=== PATIENT | female | born 1945 | race Caucasian/White ===

== ENCOUNTER 2016-05-01 10:06 | Emergency (ER) | payer MEDICARE, BC ==
[2016-05-01 11:09] VITALS: BP 123/53
--- NOTE | 2016-05-01 11:53 | UC ---
HPI Wound/Suture Re-check - HPI Summary HPI Summary: 71 year old female here for wound check of left 5th finger. She cut her finger while cutting an onion on 04/29/2016. She had a dressing with surgicell placed and was instructed to come for wound check and dressing change today. She denies pain. The bleeding has been controlled since the dressing was placed. She has good sensation throughout her left 5th finger. Denies fever or chills or increased pain or swelling - History Of Current Complaint Chief Complaint: UCLaceration Stated Complaint: RE CHECK FINGER LAC Time Seen by Provider: 05/01/16 11:42 Hx Obtained From: Patient Onset/Duration: Sudden Onset, Lasting Days - 2, Still Present - dressing has been intact Severity: Mild - Allergies/Home Medications Allergies/Adverse Reactions: Allergies Allergy/AdvReac Type Severity Reaction Status Date / Time Aspirin Allergy See Comment Verified 05/01/16 10:59 Codeine Allergy See Comment Verified 05/01/16 10:59 Meperidine [From Demerol HCl] Allergy See Comment Verified 05/01/16 10:59 PMH/Surg Hx/FS Hx/Imm Hx Previously Healthy: No - here for wound check and dressing change Endocrine History Of: Reports: Diabetes - New dx 01/2016, no insulin Cardiovascular History Of: Reports: Cardiac Disorders, Hypertension - ESSENTIAL Respiratory History Of: Denies: Asthma - Surgical History Surgical History: Yes Surgery Procedure, Year, and Place: T&A. VAGINAL REPAIR. REMOVAL OF MELANOMA. MYRINGOTOMY W/TUBE INSERTION. D&C - Family History Known Family History: Positive: Hypertension - Social History Occupation: Retired Lives: With Family Alcohol Use: Rare Substance Use Type: None Smoking Status (MU): Never Smoked Tobacco - Immunization History Most Recent Tetanus Shot: 11/27/07 Review of Systems Constitutional: Negative Skin: Other - dressing intact to left 5th finger Eyes: Negative ENT: Negative Respiratory: Negative Cardiovascular: Negative Gastrointestinal: Negative Genitourinary: Negative Motor: Negative Neurovascular: Negative Musculoskeletal: Arthralgia - left 5th finger when bumping it Neurological: Negative Psychological: Negative All Other Systems Reviewed And Are Negative: Yes Physical Exam Triage Information Reviewed: Yes Appearance: Well-Appearing, Well-Nourished, Pain Distress - dressing intact to left finger and she is very mindful of placement of left hand Vital Signs: Initial Vital Signs Temp 98 F 05/01/16 10:51 Pulse 47 05/01/16 10:51 Resp 18 05/01/16 10:51 BP 123/53 05/01/16 10:51 Pulse Ox 100 05/01/16 10:51 Vital Signs Reviewed: Yes Eyes: Positive: Conjunctiva Clear. Negative: Discharge ENT: Positive: Hearing grossly normal. Negative: Nasal congestion Neck: Positive: Supple, Nontender Respiratory: Positive: Chest non-tender, Lungs clear Cardiovascular: Positive: RRR, No Murmur Musculoskeletal: Positive: Strength Intact - left hand and fingers, ROM Intact - left hand and fingers Neurological: Positive: Alert, Muscle Tone Normal Psychological: Positive: Age Appropriate Behavior - pleasant and cooperative Skin: Positive: Other - left 5th finger dressing changes. Finger soaked in mildly warm water to remove the surgicell. There is no erythema, edema or drainage. Skin evulsion is granulating.. Negative: rashes Course/Dx - Course Course Of Treatment: 5th left finger soaked. Old surgicel removed. Dressing changed with antibiotic ointment, telfa to wound and gauze over finger for protection. Dressing change and wound care reviewed with patient. She will recheck with any concerns of healing wound - Differential Dx - Laceration/Wound Provider Diagnoses: Wound recheck of left 5th finger tip. Dressing change Discharge - Discharge Plan Condition: Stable Disposition: HOME Patient Education Materials: Skin Avulsion (ED) Referrals: Parrish Novoa MD [Primary Care Provider] - 3 Days
== END 2016-05-01 12:30 | disposition home or self-care (01) ==
LOC: UCCORT 10:06
DX: Z48.01 Encounter for change or removal of surgical wound dressing (principal); I10 Essential (primary) hypertension; E11.9 Type 2 diabetes mellitus without complications; Z88.5 Allergy status to narcotic agent; Z88.6 Allergy status to analgesic agent
CPT/HCPCS: 99212; G0463

== ENCOUNTER 2018-10-08 11:08 | Emergency (ER) | payer MEDICARE, BC ==
--- OUTSIDE RECORDS SUMMARY | 2018-10-08 11:20 | XMS REPORT | Continuity of Care Document ---
:1945 External Reference #:[id number] Author Name Jaymie Glass NP Address [address] [place] [address] Care Team Providers Name Role Phone Parrish Novoa M.D. 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 Primary Care Physician Unavailable Payers Date Identification Numbers Payment Provider Subscriber Effective: 2011 Policy Number: [id number] Medicare Noelle Morelos PayID: [id number] [address] [place] [address] Policy Number: [id number] [facility] Pelon Morelos PayID: [id number] [address] [place] [address] Problems Active Problems Provider Date Impacted cerumen Romeo Hill M.D. Onset: 10/10/2012 Dysfunction of eustachian tube Romeo Hill M.D. Onset: 10/10/2012 Chronic rhinitis Romeo Hill M.D. Onset: 10/10/2012 Social History Type Date Description Comments Sex Unknown Marital Status Lives With Spouse Occupation Retired Tobacco Use Start: Unknown Never Smoked Cigarettes ETOH Use Rarely consumes alcohol Recreational Drug Use Never Used Drugs Allergies, Adverse Reactions, Alerts Active Allergies Reaction Severity Comments Date Demerol palpatations, LOW BP 07/07/2008 Codeine Phosphate PALPITATIONS 07/07/2008 Medications Active Medications SIG Qnty Indications Ordering Provider Date Zetonna 1 squirt each 6.100gm Romeo Hill, 01/19/2015 37mcg/Act nostril daily M.D. Aerosol for 2 weeks prior to flying. Digoxin Unknown 0.25mg Tablets Pravastatin Sodium 1 qd Unknown 40mg Tablets Propranolol HCL bid Unknown 20mg Tablets Protonix Unknown 40mg Solution Rec Miralax Unknown Xanax Unknown 0.5mg Tablets Tylenol 2 by mouth as Unknown 325mg Tablets needed Advil Unknown 200mg Tablets History Medications Prednisone 1 by mouth every 5tabs Volodymyr Hilloj, 10/11/2016 - 10mg Tablets morning for 5 days M.D. 12/18/2016 Dermotic apply 5 drops twice 1[place] Romeo, 01/11/2016 - 0.01% Oil a day to affected M.D. 03/29/2018 ear canal(s)for 7-14 days Ciprodex 3-4 gtts bid in Volodymyr Burnsoj, 01/07/2015 - 0.3-0.1% affected ear x 1 wk M.D. 10/18/2015 Suspension rebate: rxbin: [id number], rxpcn: loyalty, rxgrp: [id number], chief librarian music department: ([id number]), id# [id number] Dermotic apply 5 drops twice 3[place] Romeo, 10/24/2014 - 0.01% Oil a day to affected M.D. 01/06/2015 ear canal(s)for 7-14 days Zetonna Sample Given, Lot # [id number] Hill Romeo, 10/11/2012 - 37mcg/Act Aerosol [id number], Exp Date M.D. 10/11/201210/12 Fexofenadine HCL 1 po qd 30tabs Sergio Romeo, 07/07/2008 - 180mg M.D. 04/21/2009 Tablets Flonase 2 sprays both edward Sergio Romeo, 07/07/2008 - 50mcg/Act nostrils qd M.D. 04/21/2009 Suspension Propranolol HCL 1 bid Unknown - 10mg 04/21/2009 Tablets Prevacid 1 po qd 30caps Unknown - 15mg Capsules DR 04/21/2009 Lexapro 1 po qd Unknown - 10mg Tablets 04/20/2010 Protonix 1 po qd 30tabs Unknown - 20mg Tablets DR 04/20/2010 Aspirin qday Unknown - 81mg Tablets DR 09/25/2018 Multivitamins Unknown - Capsules 10/18/2015 Glucosamine bid Unknown - Chondroitin 10/18/2015 500/400 Tablets Levsin prn for Esophageal Unknown - Solution Spasm 10/18/2015 Restasis Unknown - 0.05% Emulsion 10/18/2015 Zyrtec Allergy 1 by mouth every Unknown - 10mg day as needed 10/18/2015 Capsules Vital Signs Date Vital Result Comment 09/25/2018 11:13am Weight 153.00 lb Height 63 inches 5'3" BMI (Body Mass Index) 27.1 kg/m2 BP Systolic 152 mmHg BP Diastolic 72 mmHg Heart Rate 54 /min O2 % BldC Oximetry 95 % Body Temperature 96.8 F Pain Level 0 03/29/2018 9:01am Weight 159.00 lb Height 63 inches 5'3" BMI (Body Mass Index) 28.2 kg/m2 BP Systolic 162 mmHg BP Diastolic 76 mmHg Heart Rate 56 /min O2 % BldC Oximetry 97 % Body Temperature 96.5 F Pain Level 0 03/06/2018 1:37pm Weight 159.00 lb Height 63 inches 5'3" BMI (Body Mass Index) 28.2 kg/m2 BP Systolic 151 mmHg BP Diastolic 77 mmHg Heart Rate 60 /min O2 % BldC Oximetry 95 % Body Temperature 97.5 F Pain Level 0 12/19/2016 8:05am Weight 155.00 lb Height 63 inches 5'3" BMI (Body Mass Index) 27.5 kg/m2 BP Systolic 150 mmHg BP Diastolic 79 mmHg Heart Rate 58 /min O2 % BldC Oximetry 98 % Body Temperature 97.6 F 10/19/2015 1:56pm Weight 161.00 lb Height 63 inches 5'3" BMI (Body Mass Index) 28.5 kg/m2 BP Systolic 126 mmHg BP Diastolic 68 mmHg Heart Rate 71 /min O2 % BldC Oximetry 98 % Body Temperature 97.5 F Pain Level 0 01/19/2015 10:19am Weight 166.00 lb Height 63 inches 5'3" BMI (Body Mass Index) 29.4 kg/m2 BP Systolic 130 mmHg BP Diastolic 74 mmHg Heart Rate 59 /min O2 % BldC Oximetry 98 % Body Temperature 97.3 F Pain Level 0 01/07/2015 1:53pm Weight 167.12 lb Height 63 inches 5'3" BMI (Body Mass Index) 29.6 kg/m2 BP Systolic 122 mmHg BP Diastolic 68 mmHg Heart Rate 53 /min O2 % BldC Oximetry 97 % Body Temperature 97.6 F Pain Level 0 10/24/2014 8:35am Weight 168.12 lb with sneakers Height 63 inches 5'3" BMI (Body Mass Index) 29.8 kg/m2 BP Systolic 142 mmHg BP Diastolic 76 mmHg Heart Rate 55 /min O2 % BldC Oximetry 97 % Body Temperature 97.5 F Pain Level 0 09/25/2013 2:46pm Weight 164.00 lb Height 63 inches 5'3" BMI (Body Mass Index) 29.0 kg/m2 BP Systolic 122 mmHg BP Diastolic 74 mmHg Heart Rate 55 /min O2 % BldC Oximetry 97 % 10/10/2012 2:42pm Weight 156.00 lb Height 63 inches 5'3" BMI (Body Mass Index) 27.6 kg/m2 BP Systolic 118 mmHg BP Diastolic 70 mmHg Heart Rate 56 /min O2 % BldC Oximetry 98 % Body Temperature 98.6 F 04/19/2011 3:07pm Weight 171.00 lb Height 63 inches 5'3" BMI (Body Mass Index) 30.3 kg/m2 BP Systolic 132 mmHg BP Diastolic 84 mmHg Heart Rate 59 /min O2 % BldC Oximetry 94 % Body Temperature 96.9 F 10/19/2010 11:01am Weight 165.00 lb Height 63 inches 5'3" BMI (Body Mass Index) 29.2 kg/m2 BP Systolic 134 mmHg BP Diastolic 82 mmHg Heart Rate 50 /min O2 % BldC Oximetry 94 % Body Temperature 97.3 F 04/20/2010 3:03pm Weight 169.00 lb Height 63 inches 5'3" BMI (Body Mass Index) 29.9 kg/m2 BP Systolic 120 mmHg BP Diastolic 60 mmHg Heart Rate 56 /min Body Temperature 97.3 F 04/21/2009 11:08am Weight 170.00 lb BP Systolic 142 mmHg BP Diastolic 64 mmHg Heart Rate 54 /min 10/27/2008 2:15pm Body Temperature 97.8 F 10/13/2008 10:43am Body Temperature 97.9 F 09/23/2008 2:12pm Weight 164.00 lb Height 63 inches 5'3" BMI (Body Mass Index) 29.0 kg/m2 07/07/2008 10:21am Weight 159.00 lb Height 63 inches 5'3" BMI (Body Mass Index) 28.2 kg/m2 BP Systolic 132 mmHg BP Diastolic 76 mmHg Body Temperature 97.2 F Results Test Date Facility Test Result H/L Range Note Basic Metabolic Panel 10/07/2008 [facility] Glucose 92 mg/dL 76-115 [address] [place] [address] [phone] BUN 16 mg/dL 5-23 Creatinine 0.8 mg/dL 0.5-1.4 Glom Filtration Rate, Estimate >60 mL/min >60 If >60 mL/min >60 1 BUN/Creat 20.0 Sodium 145 mEq/L 136-145 Potassium 3.8 mEq/L 3.5-5.1 Chloride 106 mEq/L 98-107 Carbon Dioxide 31 mEq/L 21-32 Anion Gap 12 mEq/L 8-16 Calcium 9.3 mg/dL 8.5-10.1 Laboratory test finding 10/07/2008 [facility] Sgot/Ast 21 U/L 16-40 [address] [place] [address] [phone] Urine Screen Canceled By Lab 2 CBC 10/07/2008 [facility] White Blood Count 4.7 K/uL 3.1- 10.7 [address] [place] [address] [phone] Red Blood Count 4.88 M/uL 3.90-5.40 Hemoglobin 14.7 gm/dL 11.6-15.8 Hematocrit 44.7 % 36.0-46.1 Mean Cell Volume 91.6 fl 80.9-99.0 Mean Corpuscular HGB 30.1 pg 25.9-32.7 Mean Corpuscular HGB Conc 32.9 g/dL 30.8-34.3 Platelet Count 171 K/uL 155-360 Red Cell Distri Width %CV 13.0 % 11.7-14.4 Mean Platelet Volume 9.6 fL 8.9-12.4 Urinalysis With 10/07/2008 [facility] Urine Color YELLOW Yellow Microscopic [address] [place] [address] [phone] Urine Clarity CLEAR Clear Urine Glucose - Dipstick NEGATIVE mg/dL Negative Urine Bilirubin - Dipstick NEGATIVE Negative Urine Ketone NEGATIVE mg/dL Negative Urine Specific [place] <=1.005 Low 1.010-1.030 Urine Blood NEGATIVE Negative Urine PH 7.0 6.5-7.5 Urine Protein - Dipstick NEGATIVE mg/dL Negative Urine Urobilinogen - Dipstick 0.2 E.U./dL 0.2-1.0 Urine Nitrite - Dipstick NEGATIVE Negative Urine Leuk Esterase SMALL High Negative Urine RBC 0-2 rbc/hpf 0-7 Urine WBC 0-2 wbc/hpf 0-7 Urine Epithelial Cells FEW NONESEEN Urine Amorph Sediment SMALL Negative 1 Note: Persistent reduction for 3 months or more in an eGFR <60 mL/min/1.73 m2 defines CKD. Patients with eGFR values >/=60 mL/min/1.73 m2 may also have CKD if evidence of persistent proteinuria is present. The original MDRD equation for estimated GFR is not valid for patients less than 18 years of age. Additional information may be found at www.[email or web address]. 2 10/07/08 [email or web address] Deleted by [facility] Procedures Date Code Description Status 09/25/2018 43601 Tympanometry Completed 09/25/2018 25397 Audiometry, Comprehensive Completed 03/29/2018 94122 Tympanometry Completed 03/29/2018 83454 Audiometry, Comprehensive Completed 03/06/2018 35320 Remove Impacted Cerumen Completed 12/19/2016 66720 Remove Impacted Cerumen Completed 10/19/2015 88019 Audiometry, Comprehensive Completed 10/19/2015 32188 Audiometry, Comprehensive Completed 01/19/2015 12166 Remove Impacted Cerumen Completed 09/25/2013 91285 Remove Impacted Cerumen Completed 10/09/2008 77905 Tympanostomy, Gen. Anesth. 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 Dysfunction 690.18 Seborrheic Dermatitis Other Office Visit 10/10/2012 2:45p Main Office Romeo Hill M.D. 380.4 Cerumen Removal 381.81 Eustachian Tube Dysfunction 472.0 Rhinitis Chronic Office Visit 04/19/2011 3:00p Main Office Romeo Hill, 381.81 Eustachian Tube M.D. Dysfunction 472.0 Rhinitis Chronic Office Visit 10/19/2010 11:00a Main Office Romeo Hill, 381.81 Eustachian Tube M.D. Dysfunction 389.02 Hearing Loss Conductive Tympanic Membrane Office Visit 04/20/2010 3:00p Main Office Romeo Hill, 389.02 Hearing Loss M.D. Conductive Tympanic Membrane 381.81 Eustachian Tube Dysfunction Office Visit 11/10/2009 4:15p Main Office Romeo Hill, 389.02 Hearing Loss M.D. Conductive Tympanic Membrane 381.81 Eustachian Tube Dysfunction 470 Deviated Nasal Septum Office Visit 04/21/2009 11:00a Main Office Romeo Hill, 389.02 Hearing Loss M.D. Conductive Tympanic Membrane 381.81 Eustachian Tube Dysfunction 470 Deviated Nasal Septum 472.0 Rhinitis Chronic Office Visit 10/27/2008 2:15p Main Office Romeo Hill, 381.81 Eustachian Tube M.DWilfred Dysfunction Office Visit 10/17/2008 8:15a Main Office José 381.81 Eustachian Tube Tamar PA Dysfunction 389.02 Hearing Loss Conductive Tympanic Membrane Office Visit 09/23/2008 2:15p Main Office Cynthia Francis 381.81 Eustachian Tube PA Dysfunction 389.02 Hearing Loss Conductive Tympanic Membrane Office Visit 07/07/2008 10:15a Main Office Cynthia Francis, 381.81 Eustachian Tube PA Dysfunction 470 Deviated Nasal Septum 472.0 Rhinitis Chronic
--- OUTSIDE RECORDS SUMMARY | 2018-10-08 11:21 | XMS REPORT | Continuity of Care Document ---
:1945 External Reference #:[id number] Author Name Kathleen Sims Care Team Providers Name Role Phone Parrish Novoa M.D. 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 Primary Care Physician Unavailable Payers Date Identification Numbers Payment Provider Subscriber Effective: 2011 Policy Number: [id number] Medicare Noelle Morelos PayID: [id number] [address] [place] [address] Policy Number: [id number] [facility] Pelon Morelos PayID: [id number] [address] [place] [address] Problems Active Problems Provider Date Impacted cerumen [...] Medications Prednisone 1 by mouth every 5tabs Romeo Hill, 10/11/2016 - 10mg Tablets morning for 5 days M.D. 12/18/2016 Dermotic apply 5 drops twice 1Romeo Carter, 01/11/2016 - 0.01% Oil a day to affected M.D. 03/29/2018 ear canal(s)for 7-14 days Ciprodex 3-4 gtts bid in Romeo Carter, 01/07/2015 - 0.3-0.1% affected ear x 1 wk M.D. 10/18/2015 Suspension rebate: rxbin: [id number], rxpcn: [id number], rxgrp: [id number], [place] police sergeant: ([id number]), id# [id number] Dermotic apply 5 drops twice 3Romeo Burns, 10/24/2014 - 0.01% Oil a day to affected M.D. 01/06/2015 ear canal(s)for 7-14 days Zetonna Sample Given, Lot # 3Romeo Carter, 10/11/2012 - 37mcg/Act Aerosol [id number], Exp Date M.D. 10/11/201210/12 Fexofenadine HCL 1 po qd 30tabs Volodymyr Hilloj, 07/07/2008 - 180mg M.D. 04/21/2009 Tablets Flonase 2 sprays both Volodymyr Burnsoj, 07/07/2008 - 50mcg/Act nostrils qd M.D. 04/21/2009 Suspension Propranolol HCL 1 bid Unknown - 10mg 04/21/2009 Tablets Prevacid 1 po qd 30caps Unknown - 15mg Capsules 04/21/2009 Lexapro 1 po qd Unknown - 10mg Tablets 04/20/2010 Protonix 1 po qd 30tabs Unknown - 20mg Tablets 04/20/2010 Aspirin qday Unknown - 81mg Tablets 09/25/2018 Multivitamins Unknown - Capsules 10/18/2015 Glucosamine [...] H/L Range Note Basic Metabolic Panel 10/07/2008 [facility] Glucose 92 mg/dL 76-115 [address] [place], [place] [id number] [phone] BUN 16 mg/dL 5-23 Creatinine 0.8 mg/dL 0.5-1.4 Glom Filtration Rate, Estimate >60 mL/min >60 If >60 mL/min >60 1 BUN/Creat 20.0 Sodium 145 mEq/L 136-145 Potassium 3.8 mEq/L 3.5-5.1 Chloride 106 mEq/L 98-107 Carbon Dioxide 31 mEq/L 21-32 Anion Gap 12 mEq/L 8-16 Calcium 9.3 mg/dL 8.5-10.1 Laboratory test finding 10/07/2008 [facility] Sgot/Ast 21 U/L 16-40 [address] [place] [address] [phone] Urine Screen Canceled By Lab 2 CBC 10/07/2008 [facility] White Blood Count 4.7 K/uL 3.1- 10.7 [address] [place] [address] [phone] Red Blood Count 4.88 M/uL 3.90-5.40 Hemoglobin 14.7 gm/dL 11.6-15.8 Hematocrit 44.7 % 36.0-46.1 Mean Cell Volume 91.6 fl 80.9-99.0 Mean Corpuscular HGB 30.1 pg 25.9-32.7 Mean Corpuscular HGB Conc 32.9 g/dL 30.8-34.3 Platelet Count 171 K/uL 155-360 Red Cell Distri Width %CV 13.0 % 11.7-14.4 Mean Platelet Volume 9.6 fL 8.9-12.4 Urinalysis With 10/07/2008 [facility] Urine Color YELLOW Yellow Microscopic [address] [place] [address] [phone] Urine Clarity CLEAR Clear Urine Glucose - Dipstick NEGATIVE mg/dL Negative Urine Bilirubin - Dipstick NEGATIVE Negative Urine Ketone NEGATIVE mg/dL Negative Urine Specific [place] <=1.005 Low 1.010-1.030 Urine Blood NEGATIVE Negative [...] 2 10/07/08 [email or web address] Deleted by [facility] Procedures Date Code Description Status 03/29/2018 14397 Tympanometry Completed 03/29/2018 89740 Audiometry, Comprehensive Completed 03/06/2018 12819 Remove Impacted Cerumen Completed 12/19/2016 79353 Remove Impacted Cerumen Completed 10/19/2015 75041 Audiometry, Comprehensive Completed 10/19/2015 61115 Audiometry, Comprehensive Completed 01/19/2015 10579 Remove Impacted Cerumen Completed 09/25/2013 80414 Remove Impacted Cerumen Completed 10/09/2008 15242 Tympanostomy, Gen. Anesth. 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 Dysfunction Office Visit 10/17/2008 8:15a Main Office José 381.81 Eustachian Tube Tamar PA Dysfunction 389.02 Hearing Loss Conductive Tympanic Membrane Office Visit 09/23/2008 2:15p Main Office Cynthia Francis 381.81 Eustachian Tube PA Dysfunction 389.02 Hearing Loss Conductive Tympanic Membrane Office Visit 07/07/2008 10:15a Main Office Cynthia Francis, Bri.81 Eustachian Tube PA Dysfunction 470 Deviated Nasal Septum 472.0 Rhinitis Chronic
[2018-10-08 11:30] VITALS: BP 160/70
--- NOTE | 2018-10-08 12:15 | UC ---
Headache HPI - HPI Summary HPI Summary: 73-year-old woman comes in with a chief complaint of occipital headache. Started 5 days ago. It's about a 4 out of 10 headache came on gradually. Over- the-counter medications helps some with the headache but it doesn't change very much. 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 Pain is not worse with movement of the neck and head. The headache is not woke her from sleep. No nausea no vomiting no change in vision no change in speech no weakness or numbness. It's steady and dull is not pulsating. She is not on any other blood thinners other than a baby aspirin. She has had some environmental allergies with some rhinorrhea. No fevers no chills no neck or back pain. - History Of Current Complaint Chief Complaint: UCHeadache Stated Complaint: ELEVATED BP,HEADACHE Time Seen by Provider: 10/08/18 11:47 Pain Intensity: 5 - Allergies/Home Medications Allergies/Adverse Reactions: Allergies Allergy/AdvReac Type Severity Reaction Status Date / Time aspirin Allergy Palpitation Verified 10/08/18 11:27 s codeine Allergy Palpitation Verified 10/08/18 11:27 s meloxicam [From Mobic] Allergy See Comment Verified 10/08/18 11:27 meperidine [From Demerol] Allergy See Comment Verified 10/08/18 11:27 Home Medications: Home Medications Acetaminophen [Tylenol] 325 mg PO Q4HR PRN 10/08/18 [History Confirmed 10/08/18] Aspirin [Aspir-Low] 81 mg PO DAILY 10/08/18 [History Confirmed 10/08/18] Digoxin [Lanoxin] 125 mcg PO SEE INSTRUCTIONS 10/08/18 [History Confirmed ] PMH/Surg Hx/FS Hx/Imm Hx Previously Healthy: Yes Endocrine History: Dyslipidemia Other Cardiovascular History: TACHYCARDIA; ON DIGOXIN AND INDEROL - Surgical History Surgical History: Yes Surgery Procedure, Year, and Place: T&A. VAGINAL REPAIR. REMOVAL OF MELANOMA. MYRINGOTOMY W/TUBE INSERTION. D&C - Family History Known Family History: Positive: Hypertension - Social History Alcohol Use: Rare Substance Use Type: None Smoking Status (MU): Never Smoked Tobacco - Immunization History Most Recent Tetanus Shot: 11/27/07 Review of Systems All Other Systems Reviewed And Are Negative: Yes Constitutional: Positive: Fatigue Skin: Positive: Negative Eyes: Positive: Negative ENT: Positive: Negative Respiratory: Positive: Negative Cardiovascular: Positive: Negative Gastrointestinal: Positive: Negative Motor: Positive: Negative Neurovascular: Positive: Negative Musculoskeletal: Positive: Negative Neurological: Positive: Negative Psychological: Positive: Negative Is Patient Immunocompromised?: No Physical Exam Triage Information Reviewed: Yes Appearance: Well-Appearing, No Pain Distress, Well-Nourished Vital Signs: Initial Vital Signs Temp 98.7 F 10/08/18 11:22 Pulse 51 10/08/18 11:22 Resp 17 10/08/18 11:22 BP 160/70 10/08/18 11:22 Pulse Ox 98 10/08/18 11:22 Vital Signs Reviewed: Yes Eye Exam: Normal Eyes: Positive: Conjunctiva Clear ENT: Positive: Pharynx normal, TMs normal Neck: Positive: Supple, Nontender Respiratory: Positive: Lungs clear, Normal breath sounds, No respiratory distress Cardiovascular: Positive: RRR Musculoskeletal Exam: Normal Musculoskeletal: Positive: Strength Intact, ROM Intact Neurological Exam: Normal Neurological: Positive: Alert, Muscle Tone Normal Psychological Exam: Normal Psychological: Positive: Age Appropriate Behavior Skin Exam: Normal Diagnostics - EKG Cardiac Rate: Bradycardia - AT 1135 Cardiac Rhythm: Sinus: Normal - 47BPM Ectopy: None ST Segment: Normal Headache Course/Dx - Course Course Of Treatment: Patient Name: FLOR BRANDON Medical Record#: [id number] Ordering Physician: Eric Bravo MD Acct.#: [id number] : 1945 Age: 73 Sex: F [facility]: [facility] Exam Date: 10/08/18 120 ADM Status: [facility] ER Order Information: CT BRAIN WO Accession Number: [id number] CPT: 56040 INDICATION: Occipital headache. COMPARISON: There are no relevant prior studies available for comparison. TECHNIQUE: Contiguous axial sections of the brain were obtained from the skull base to the vertex without contrast. FINDINGS: The ventricles, cisterns and sulci are within normal limits. No significant focal abnormality or mass effect is seen. There is no evidence for hemorrhage. No significant focal osseous abnormality is seen. The visualized portion of the paranasal sinuses and mastoid air cells appear clear. IMPRESSION: NO EVIDENCE FOR ACUTE INTRACRANIAL ABNORMALITY. <Electronically signed by Ramone Polk MD in OV> 10/08/18 [address] results and the EKG with the patient. Blood work was drawn a CBC CMP and digoxin. Those results are pending. Patient is bradycardic on EKG. Patient reports she is always bradycardic because she is on digoxin and Inderal. Plan is to follow-up with her primary care doctor within the week. Get reevaluated sooner the emergency department if worse. - Differential Dx/Diagnosis Provider Diagnosis: Occipital headache, Hypertension Discharge - Sign-Out/Discharge Documenting (check all that apply): Patient Departure All imaging exams completed and their final reports reviewed: Yes - Discharge Plan Condition: Stable Disposition: HOME Patient Education Materials: Acute Headache (ED), Hypertension (ED) Referrals: Parrish Novoa MD [Primary Care Provider] - Additional Instructions: FOLLOW UP WITH YOUR DOCTOR WITHIN ONE WEEK. GET RECHECKED SOONER IF YOUR CONDITION WORSENS; PAIN, WEAKNESS, NUMBNESS, DIFFICULTY WITH VISION OR SPEECH, YOU FEEL ILL OR ANY QUESTIONS OR CONCERNS. - Billing Disposition and Condition Condition: STABLE Disposition: Home
[2018-10-08 19:07] LABS: ABS Eosinophils 0.2 10^3/ul (0-0.6); ABS Lymphocytes 1.7 10^3/ul (1.0-4.8); ABS Monocytes 0.7 10^3/ul (0-0.8); ABS Neutrophils 4.7 10^3/ul (1.5-7.7); Eosinophil % 2.1 %; Hematocrit 50 % (35-47); Hemoglobin 16.6 g/dL (12.0-16.0); Lymphocyte % 22.9 %; Mean Corpuscular HGB Conc 33 g/dL (31-36); Mean Corpuscular Hemoglobin 30 pg (27-31); Mean Corpuscular Volume 92 fL (80-97); Mean Platelet Volume 7.8 fL (7.4-10.4); Platelet Count 184 10^3/uL (150-450); Red Blood Count 5.46 10^6 /uL (3.70-4.87); Red Cell Distribution Width 14 % (10-15); White Blood Count 7.2 10^3/uL (3.5-10.8)
[2018-10-08 19:23] LABS: Albumin 4.5 g/dL (3.2-5.2); Calcium 10.7 mg/dL (8.6-10.3); Potassium 4.2 mmol/L (3.5-5.0); Total Bilirubin 0.7 mg/dL (0.2-1.0)
[2018-10-08 19:29] LABS: BUN/Creatinine Ratio 22.4 (8-20); EGFR African American 79.5 (>60); EGFR Non-African American 65.7 (>60); Globulin 2.2 g/dL (2-4); Total Protein 6.7 g/dL (6.4-8.9)
--- NOTE | 2018-10-09 07:46 | ED ---
Progress - Progress Note Progress Note: Please call patient have her follow up with her primary doctor as soon as possible this week. The calcium is high and alk phos is high. THis can be seen with metastatic cancer. Course/Dx - Diagnoses Provider Diagnoses: Occipital headache, Hypertension Discharge - Sign-Out/Discharge Documenting (check all that apply): Patient Departure All imaging exams completed and their final reports reviewed: Yes - Discharge Plan Condition: Stable Disposition: HOME Patient Education Materials: Acute Headache (ED), Hypertension (ED) Referrals: Parrish Novoa MD [Primary Care Provider] - Additional Instructions: FOLLOW UP WITH YOUR DOCTOR WITHIN ONE WEEK. GET RECHECKED SOONER IF YOUR CONDITION WORSENS; PAIN, WEAKNESS, NUMBNESS, DIFFICULTY WITH VISION OR SPEECH, YOU FEEL ILL OR ANY QUESTIONS OR CONCERNS. - Billing Disposition and Condition Condition: STABLE Disposition: Home
== END 2018-10-08 13:13 | disposition home or self-care (01) ==
LOC: UCCORT 11:08
DX: R51 Headache (principal); I10 Essential (primary) hypertension; R00.0 Tachycardia, unspecified
CPT/HCPCS: 36415; 70450; 80053; 83690; 85025; 93005; 99211; G0463

== ENCOUNTER 2023-06-20 05:42 | Observation (INO) ==
[~2023-06-20 05:42] MED LIST: HYDROmorphone 1 MG/1 ML SYRINGE IV PRN; Naloxone 0.4 mg VIAL 0.4 mg/ml 1 ml VIAL IV PRN; Ondansetron 4 mg VIAL 2 MG/ML 2 ml VIAL IV PRN; fentaNYL 100 mcg/2 ml 50 MCG/ML VIAL IV PRN
[2023-06-20] MEDS ORDERED: Tranexamic Acid 1 GM/100ML BAG 2,000 MG/200 ML BAG IV ONE (06:07)
[2023-06-20] MEDS ORDERED: Buffered Lidocaine 1% SYRIN 1 ml ONE (06:08)
[2023-06-20] MEDS ORDERED: ceFAZolin 2 GM PREMIX 2 GM/50 ML BAG ONE (06:08)
[2023-06-20 06:22] LABS: Rapid COVID-19 Molecular Undetected (Undetected)
[2023-06-20] MEDS: Lactated Ringers 1000 ml BAG 1,000 ML IV SCH ×2 (06:34→16:58)
[2023-06-20] MEDS: Buffered Lidocaine 1% SYRIN 1 ml INTRADERM ONE (06:34)
[2023-06-20] MEDS ORDERED: Lidocaine 2% PF 5 ML VIAL ONE (06:50)
[2023-06-20] MEDS ORDERED: Propofol 10 MG/ML 20 ML BTL ONE (06:50)
[2023-06-20] MEDS ORDERED: Phenylephrine IV 10 MG/ML 1 ml VIAL ONE (06:58)
[2023-06-20] MEDS ORDERED: KETAMINE HCL 10 MG/ML 20 ml VIAL (200 MG) ONE (07:04)
[2023-06-20] MEDS ORDERED: Dexamethasone IV 4 MG/ML VIAL 1 ml VIAL ONE (07:08)
[2023-06-20] MEDS ORDERED: ROPIVACAINE 5 MG/ML 30 ML BTL (0.5%) ONE ×2 (07:08→07:10)
[2023-06-20] MEDS ORDERED: Midazolam 2 mg/2 ml VIAL 1 mg/ml 2 ml VIAL (2 mg) ONE (07:08)
[2023-06-20] MEDS ORDERED: Bupivacaine 0.5% SDV PF 30ML VIAL ONE (07:38)
[2023-06-20] MEDS ORDERED: Artificial Tear OPHTH.OINT 3.5 GM ONE (08:23)
[2023-06-20] MEDS ORDERED: Ondansetron 4 mg VIAL 2 MG/ML 2 ml VIAL ONE (08:23)
[2023-06-20] MEDS ORDERED: Ondansetron ODT 4 mg TAB 4 MG TAB PO PRN (08:39)
[2023-06-20] MEDS ORDERED: Lactulose 30 ml UDC PO PRN (08:39)
[2023-06-20] MEDS ORDERED: Ondansetron 4 mg VIAL 2 MG/ML 2 ml VIAL IV PRN (08:39)
[2023-06-20] MEDS ORDERED: Magnesium Hydroxide LIQ 30 ML UDC PO PRN (08:39)
[2023-06-20] MEDS ORDERED: Morphine 2 MG/ML SYRINGE IV PRN (08:39)
[2023-06-20] MEDS ORDERED: Glycopyrrolate IV 0.2 MG/ML 1 ML VIAL ONE (09:19)
[2023-06-20] MEDS: Vitamin THERAPEUTIC TAB PO SCH (16:59)
[2023-06-20] MEDS: Magnesium Hydroxide LIQ 30 ML UDC PO SCH (16:59)
[2023-06-20] MEDS: ceFAZolin 1 GM ADVAN 1 GM in NS 0.9% 50 ML 50 ML IVPB SCH (18:02)
[2023-06-20] MEDS ORDERED: Dextrose 50% Syringe 50 ml 25 GM/50 ML SYRINGE IV PUSH PRN (22:15)
[2023-06-21 05:54] LABS: ABS Lymphocytes 1.2 10^3/uL (1.0-4.8); ABS Monocytes 1.4 10^3/uL (0.0-0.9); ABS Neutrophils 9.3 10^3/uL (1.5-7.6); Hematocrit 34.9 % (35-45); Hemoglobin 11.6 g/dL (11.5-14.3); Lymphocyte % 10.3 %; Mean Corpuscular Hemoglobin 30.6 pg (27-33); Mean Corpuscular Hgb Conc 33.2 g/dL (31-36); Mean Corpuscular Volume 92.1 fL (80-97); Mean Platelet Volume 7.6 fL (7.5-11.2); Platelet Count 169 10^3/uL (150-450); Red Blood Count 3.79 10^6/uL (3.63-4.92); Red Cell Distribution Width 13.1 % (12-17)
[2023-06-21 06:05] LABS: Creatinine, Serum 0.68 mg/dL (0.51-0.95); Potassium 4.4 mmol/L (3.5-5.0); eGFR CKD-EPI 89.6 (>60)
[2023-06-21 10:36] VITALS: BP 127/56
== END 2023-06-21 16:00 | disposition home or self-care (01) ==
LOC: SSU 05:42 → OR 05:42
PROVIDERS: ADMIT Orthopaedic Surgery Adult Reconstructive Orthopaedic Surgery; ATTEND Orthopaedic Surgery Adult Reconstructive Orthopaedic Surgery